=== PATIENT | male | born 1990 | race American Indian/Alaskan Native ===

== ENCOUNTER 2018-02-08 13:36 | Emergency (ER) | payer MEDICAID ==
[2018-02-08] MEDS ORDERED: Acetaminophen-Codeine 300/30 mg Tab PO STA (14:01)
[2018-02-08] MEDS ORDERED: Acetaminophen-Codeine 300/30 mg Tab PO ONE (14:12)
--- NOTE | 2018-02-08 15:05 | C.PDOC ---
History Of Present Illness 27 year old male comes in complaining of a 1 day history of lower back pain radiating to his left leg. Patient denies any injury, trauma, urinary/bowel incontinence, or saddle distribution anesthesia. Patient has not taken anything for pain and states pain worsens with movement. Denies abdominal pain or urinary symptoms. Time Seen by Provider: 02/08/18 13:40 Chief Complaint (Nursing): Back Pain History Per: Patient History/Exam Limitations: no limitations Onset/Duration Of Symptoms: Days Current Symptoms Are (Timing): Still Present Past Medical History Reviewed: Historical Data, Nursing Documentation, Vital Signs Vital Signs: Last Vital Signs Temp 97.8 F 02/08/18 13:46 Pulse 87 02/08/18 13:46 Resp 18 02/08/18 13:46 BP 109/79 02/08/18 13:46 Pulse Ox 97 02/08/18 13:46 Family History: States: No Known Family Hx - Social History Hx Alcohol Use: No Hx Substance Use: No Review Of Systems Except As Marked, All Systems Reviewed And Found Negative. Musculoskeletal: Positive for: Back Pain (lower) Physical Exam - Physical Exam Appears: Non-toxic, No Acute Distress Skin: Normal Color, Warm, Dry Head: Atraumatic, Normacephalic Eye(s): bilateral: Normal Inspection, PERRL, EOMI Oral Mucosa: Moist Neck: Supple Chest: Symmetrical Cardiovascular: Rhythm Regular, No Murmur Respiratory: Normal Breath Sounds, No Rales, No Rhonchi, No Wheezing Back: Straight Leg Raising (Left leg at 60 degrees), Other (Paralumbar tenderness, stepoff; no midline tenderness, no swelling, no erythema, neurological intact ) Extremity: Capillary Refill (less than 2 seconds) Pulses: Left Dorsalis Pedis: Normal Neurological/Psych: Oriented x3, Normal Speech ED Course And Treatment O2 Sat by Pulse Oximetry: 97 (RA) Pulse Ox Interpretation: Normal Medical Decision Making Medical Decision Making: Impression: Sciatica Plan: --Flexeril 10 mg PO --Motrin 600 mg PO --Tylenol/Codeine PO Patient will be discharged home and was instructed to follow up with PMD within 2 days for further evaluation. Patient states he has someone to drive him home. Disposition Counseled Patient/Family Regarding: Diagnosis, Need For Followup, Rx Given - Disposition Referrals: Davidson Covington MD [Staff Provider] - Disposition: HOME/ ROUTINE Disposition Time: 16:04 Condition: STABLE Additional Instructions: follow up with your doctor within 2 days call to make an appointment take medications as prescribed return to ER if symptoms worsens or progress Prescriptions: Cyclobenzaprine [Cyclobenzaprine HCl] 10 mg PO TID PRN #12 tab PRN Reason: Muscle Spasm Lidocaine 5% [Lidoderm] 1 ea TD DAILY PRN #10 patch PRN Reason: Pain, Moderate (4-7) Naproxen [Naprosyn] 500 mg PO BID PRN #16 tab PRN Reason: Pain, Moderate (4-7) Instructions: Sciatica Forms: General Discharge Instructions, [facility] (Greenlandic), Work Excuse - Clinical Impression Clinical Impression: Sciatica - Scribe Statement The provider has reviewed the documentation as recorded by the Manny Tamayo Provider Attestation: All medical record entries made by the Natachaibnagi were at my direction and personally dictated by me. I have reviewed the chart and agree that the record accurately reflects my personal performance of the history, physical exam, medical decision making, and the department course for this patient. I have also personally directed, reviewed, and agree with the discharge instructions and disposition.
[2018-02-08 15:17] VITALS: BP 110/85; PULSE 78; RESP 16; TEMP 98.1
[2018-02-08 15:18] VITALS: O2SAT 97
== END 2018-02-08 15:16 | disposition home or self-care (01) ==
LOC: C.ER 13:36
DX: M54.30 Sciatica, unspecified side (principal)

== ENCOUNTER 2018-03-31 20:19 | Emergency (ER) | payer MEDICAID, OTHER ==
[2018-03-31 20:55] VITALS: BP 103/64; PULSE 82; RESP 18; TEMP 98.6; O2SAT 99
[2018-03-31] MEDS ORDERED: Lidocaine 5% Patch TD STA (21:06)
--- NOTE | 2018-03-31 21:08 | C.PDOC ---
History Of Present Illness 28 y/o male presents to the ED for evaluation of low back pain, present for over 1 year. Patient reports he has already been seen by PMD and solutions specialist, and is currently doing physical therapy 3x weekly. He is not taking any medications for pain at home. States the only reason he is here is because a friend is also being evaluated. Patient notes he does not want medication. When asked for the purpose of this visit, patient states he is unsure and will go see his doctor. Denies any new injury or change in quality of pain. Time Seen by Provider: 03/31/18 20:41 Chief Complaint (Nursing): Back Pain History Per: Patient History/Exam Limitations: no limitations Onset/Duration Of Symptoms: Days Current Symptoms Are (Timing): Still Present Quality Of Discomfort: "Pain" Previous Symptoms: Back Pain Associated Symptoms: None Past Medical History Reviewed: Historical Data, Nursing Documentation, Vital Signs Vital Signs: Last Vital Signs Temp 98.6 F 03/31/18 20:52 Pulse 82 03/31/18 20:52 Resp 18 03/31/18 20:52 BP 103/64 03/31/18 20:52 Pulse Ox 99 03/31/18 20:52 - Medical History PMH: Back Problems (herniated disc x4) Family History: States: No Known Family Hx - Social History Hx Alcohol Use: No Hx Substance Use: No - Immunization History Hx Tetanus Toxoid Vaccination: No Hx Influenza Vaccination: Yes Hx Pneumococcal Vaccination: No Review Of Systems Constitutional: Negative for: Fever, Chills, Weakness Gastrointestinal: Negative for: Nausea, Vomiting, Abdominal Pain Genitourinary: Negative for: Dysuria, Hematuria Musculoskeletal: Positive for: Back Pain. Negative for: Leg Pain Skin: Negative for: Rash Neurological: Negative for: Weakness, Numbness Physical Exam - Physical Exam Appears: Well, Non-toxic, No Acute Distress Skin: Normal Color, Warm, No Rash Head: Atraumatic, Normacephalic Eye(s): bilateral: Normal Inspection (no scleral icterus) Neck: Normal ROM Chest: Symmetrical Respiratory: No Accessory Muscle Use, Other (Normal inspiratory effort) Extremity: Bilateral: Atraumatic, Other (Ambulatory with steady upright gait) Neurological/Psych: Oriented x3, Other (Moving all extremities) Gait: Steady ED Course And Treatment O2 Sat by Pulse Oximetry: 99 (RA) Pulse Ox Interpretation: Normal Medical Decision Making Medical Decision Making: Impression: Back pain Plan: - Lidoderm patch applied Patient remains AAOx3, ambulatory in the ED. Will discharge patient home, advised to follow up with PMD. Disposition Counseled Patient/Family Regarding: Diagnosis, Need For Followup - Disposition Referrals: Davidson Covington MD [Primary Care Provider] - Disposition: HOME/ ROUTINE Disposition Time: 21:07 Condition: STABLE Instructions: Low Back Pain (DC) Forms: General Discharge Instructions, [facility] (Nepali), Work Excuse - Clinical Impression Clinical Impression: Chronic low back pain - PA / MARKETING ADMINISTRATIVE ASSISTANT / Resident Statement MD/DO has reviewed & agrees with the documentation as recorded. - Scribe Statement The provider has reviewed the documentation as recorded by the Scribnagi Soto All medical record entries made by the Scribe were at my direction and p ersonally dictated by me. I have reviewed the chart and agree that the record accurately reflects my personal performance of the history, physical exam, medical decision making, and the department course for this patient. I have also personally directed, reviewed, and agree with the discharge instructions and disposition.
[2018-03-31] MEDS ORDERED: Lidocaine 5% Patch TD ONE (21:17)
== END 2018-03-31 21:27 | disposition home or self-care (01) ==
LOC: C.ER 20:19 → EDBD 20:19 → SUPCPDRO 20:19 → C.ER 21:27
DX: G89.29 Other chronic pain (principal); M54.5 Low back pain